=== PATIENT | male | born 1965 | race Caucasian/White ===

== ENCOUNTER 2018-02-02 17:05 | Inpatient (IN) ==
[2018-02-07] MEDS ORDERED: Aluminum/Magnesium/Simethacone Susp 30 ML UDC PO PRN (07:56)
--- NOTE | 2018-02-07 12:55 | P.PNPSY ---
Subjective Remarks: Patient was seen and case discussed with nursing. Patient remains psychotic. He is complaining of auditory hallucinations but cannot identify the content. His internally preoccupied and is seclusive to self. Says he sees ghosts at night. He denies that the voices are telling him to hurt himself or others. Compliant with medications. Has not had any outbursts. Eating and sleeping well Mental Status Examination Appearance: Disheveled Consciousness: Alert Orientation: x4 Motor Activity: Normal gait Speech: Slow Language: Adequate Fund of Knowledge: Inadequate Attention and Concentration: Easily distracted Memory: Unremarkable Mood: Appropriate Affect: Blunt Thought Process & Associations: Disorganized Thought Content: Hallucinations Hallucination Type: Auditory Delusion Type: Paranoid Suicidal Ideation: No Suicidal Plan: No Suicidal Intention: No Homicidal Ideation: No Homicidal Plan: No Homicidal Intention: No Insight: Fair Judgment: Impulsive Assessment and Plan - Assessment (1) Schizophrenia Code(s): F20.9 - Schizophrenia, unspecified Status: Acute - Plan Plan: Estimated LOS: [] days Continue current treatment plan Justification for Continued Inpatient Stay: Patient would decompensate in a less restrictive setting
--- NOTE | 2018-02-08 22:08 | P.PNPSY ---
Subjective Remarks: Patient seen for follow up; chart reviewed. Discussion with nursing staff reported the patient had been mostly seclusive to room and compliant with medications recently. Patient was found lying hospital bed noted B, cooperative. Patient states that he had been feeling "good" although continues report seeing ghosts and having auditory hallucinations that are "loud" and that they mostly "talk about weather" today. He reports having compliant with clozapine in the evening and was reminded that he will continue to require weekly CBCs to continue this treatment which he agrees to. Patient reports trying to attend groups more. Review of Systems All other systems reviewed negative except as stated in HPI Mental Status Examination Appearance: Appropriate Consciousness: Alert Orientation: x4 Motor Activity: Normal gait Speech: Slow Language: Adequate Fund of Knowledge: Inadequate Attention and Concentration: Easily distracted Memory: Unremarkable Mood: Appropriate Affect: Blunt Thought Process & Associations: Other Thought Content: Hallucinations Hallucination Type: Auditory, Visual (Coast outside the window) Delusion Type: Paranoid Suicidal Ideation: No Suicidal Plan: No Suicidal Intention: No Homicidal Ideation: No Homicidal Plan: No Homicidal Intention: No Insight: Fair Judgment: Impulsive Assessment and Plan - Assessment (1) Schizophrenia Code(s): F20.9 - Schizophrenia, unspecified Status: Acute - Plan Plan: Patient this time continues to endorse visual hallucinations as well as auditory hallucinations but not command in nature at this time. Patient denies any suicidal homicidal ideations at this time. We will continue cross titration of Abilify with clozapine therefore we will decrease Abilify 25 mg daily and increase clozapine to 150. We will order CBC for tomorrow to continue to monitor for neutropenia. Continue to monitor mood and behavior. Discharge planning in progress. Justification for Continued Inpatient Stay: At risk of further decompensation a lower level of care.
[2018-02-09] MEDS: ARIPiprazole 5 MG Tablet PO SCH ×2 (09:08→09:22)
[2018-02-09 11:04] LABS: Baso % (Auto) 0.9 % (0.0-2.0); Eos # (Auto) 0.1 th/mm3 (0.0-0.4); Eos % (Auto) 1.9 % (0.0-4.0); Hematocrit 41.5 % (39.0-51.0); Hemoglobin 13.7 gm/dL (13.0-17.0); Lymph # (Auto) 1.4 th/mm3 (1.0-4.8); Lymph % (Auto) 31.8 % (9.0-44.0); Mean Corpuscular HGB Conc 32.9 % (32.0-36.0); Mean Corpuscular Hemoglobin 28.5 pg (27.0-34.0); Mean Corpuscular Volume 86.6 fL (80.0-100.0); Mean Platelet Volume 8.6 fL (7.0-11.0); Mono # (Auto) 0.5 th/mm3 (0.0-0.9); Mono % (Auto) 11.2 % (0.0-8.0); Neut # (Auto) 2.4 th/mm3 (1.8-7.7); Neut % (Auto) 54.2 % (16.0-70.0); Platelet Count 257 th/mm3 (150-450); Red Blood Count 4.79 mil/mm3 (4.50-5.90); Red Cell Distribution Width 12.8 % (11.6-17.2); White Blood Count 4.4 th/mm3 (4.0-11.0)
[2018-02-09] MEDS ORDERED: Acetaminophen 325 MG Tablet PO PRN (17:41)
--- NOTE | 2018-02-09 21:18 | ECG ---
Date Performed: 02/09/2018 Time Performed: 18:46:08 PTAGE: 52 years EKG: Sinus rhythm POSSIBLE LEFT ATRIAL ENLARGEMENT ST DEVIATION AND MODERATE T-WAVE ABNORMALITY ABNORMAL ECG NO PREVIOUS TRACING DOCTOR: Talia Whyte Interpretating Date/Time 02/09/2018 21:17:00
--- NOTE | 2018-02-09 23:32 | P.PNPSY ---
Subjective Remarks: Patient seen for follow up; chart reviewed. Discussion with nursing staff reported that the patient continues to be isolative, cooperative with staff; med compliant. Patient was found lying on hospital bed, states that he is sleeping well, is going out for meals but has not attended groups. He reports VH of ghosts of family members and AH that are "not as bad, not as many, not as loud". Patient denies any SI/HI. Review of Systems All other systems reviewed negative except as stated in HPI Mental Status Examination Appearance: Appropriate Consciousness: Alert Orientation: x4 Motor Activity: Normal gait Speech: Slow Language: Adequate Fund of Knowledge: Inadequate Attention and Concentration: Easily distracted Memory: Unremarkable Mood: Appropriate Affect: Blunt Thought Process & Associations: Other Thought Content: Hallucinations Hallucination Type: Auditory, Visual (Ghosts outside the window) Delusion Type: Paranoid Suicidal Ideation: No Suicidal Plan: No Suicidal Intention: No Homicidal Ideation: No Homicidal Plan: No Homicidal Intention: No Insight: Fair Judgment: Impulsive Assessment and Plan - Assessment (1) Schizophrenia Code(s): F20.9 - Schizophrenia, unspecified Status: Acute - Plan Plan: Patient with continued AH and VH, continues to be isolative but denying any SI or HI. Will continue to cross titrate, Ability to 20mg PO daily, continue Clozapine 150mg PO HS. Continue to monitor vitals and any signs of possible myocarditis, will order repeat CBC for weekly monitoring of neutrophil count. Continue to monitor mood and behavior. Encourage patient to participate in groups and activities. Discharge planning in progress. Justification for Continued Inpatient Stay: At risk for further decompensation if at lower level of care.
--- NOTE | 2018-02-10 19:34 | P.PNPSY ---
Subjective Remarks: Patient seen for follow up; chart reviewed. Discussion with nursing staff reported patient seclusive; med compliant. Patient was found lying on hospital bed. He states that he is tolerating medications well, continues to report AH which are lessening "not as bad.. a little today". He reports VH of a ghost in the window during interview; denies any physical complaints. He states having attended [employer] group yesterday. Review of Systems All other systems reviewed negative except as stated in HPI Mental Status Examination Appearance: Appropriate Consciousness: Alert Orientation: x4 Motor Activity: Normal gait Speech: Slow Language: Adequate Fund of Knowledge: Inadequate Attention and Concentration: Easily distracted Memory: Unremarkable Mood: Appropriate Affect: Blunt Thought Process & Associations: Other Thought Content: Hallucinations Hallucination Type: Auditory (lessening), Visual (Ghosts outside the window) Delusion Type: None Suicidal Ideation: No Suicidal Plan: No Suicidal Intention: No Homicidal Ideation: No Homicidal Plan: No Homicidal Intention: No Insight: Fair Judgment: Impulsive Assessment and Plan - Assessment (1) Schizophrenia Code(s): F20.9 - Schizophrenia, unspecified Status: Acute - Plan Plan: Patient continues with AH which is decreasing, continues with VH; continues to be isolative. QTc within normal range. Will continue to cross titrate Abilify to 15mg daily and maintain clozapine at 150mg HS. No signs of symptoms of myocarditis. Continue to monitor vitals. Encourage patient to participate in groups and activities. Discharge planning in progress. Justification for Continued Inpatient Stay: At risk for further decompensation at lower level of care.
--- NOTE | 2018-02-11 18:03 | P.PNPSY ---
Subjective Remarks: Patient seen for follow-up, chart reviewed. Discussion with nursing staff reported that the patient patient continued to be seclusive to room, but compliant with medications. Patient was found lying hospital bed noted B, cooperative. Continues to report auditory hallucinations to be "the same" and being loud at times but not command in nature. Patient also mentions having visual hallucinations of ghosts in the room and outside his window. Patient denies any physical complaints at this time. Patient encouraged to participate in groups and activities which he stated he had not participated in group for fresh air yesterday and will try to participate today. Patient denies any SI or HI. Review of Systems All other systems reviewed negative except as stated in HPI Mental Status Examination Appearance: Appropriate Consciousness: Alert Orientation: x4 Motor Activity: Normal gait Speech: Slow Language: Adequate Fund of Knowledge: Inadequate Attention and Concentration: Easily distracted Memory: Unremarkable Mood: Appropriate Affect: Blunt Thought Process & Associations: Other Thought Content: Hallucinations Hallucination Type: Auditory (lessening), Visual (Ghosts outside the window) Delusion Type: None Suicidal Ideation: No Suicidal Plan: No Suicidal Intention: No Homicidal Ideation: No Homicidal Plan: No Homicidal Intention: No Insight: Fair Judgment: Impulsive Assessment and Plan - Assessment (1) Schizophrenia Code(s): F20.9 - Schizophrenia, unspecified Status: Acute - Plan Plan: Patient continues with perceptual disturbances but has been endorsing decrease in intensity and frequency recently. We will continue cross titration and we will decrease Abilify to 10 mg and increase clozapine to 175 mg p.o. at bedtime. We will continue to monitor mood and behavior. Collateral formation pending from patient's mother. Discharge planning in progress. Justification for Continued Inpatient Stay: At risk for further decompensation if at lower level of care.
[2018-02-12] MEDS: ARIPiprazole 10 MG Tablet PO SCH ×2 (09:18→09:19)
[2018-02-12] MEDS ORDERED: ARIPiprazole 10 MG Tablet PO SCH (12:42)
--- NOTE | 2018-02-12 17:20 | P.PNPSY ---
Subjective Remarks: Patient seen for follow-up, chart reviewed. Discussion nursing staff reported the patient reported that the auditory hallucinations have been better, and that now he is voices "gibberish", but compliant with medications has been out for meals and sleeping well. Patient was found lying hospital bed noted B, cooperative. Patient states that he is feeling better, and that the auditory hallucinations have always been there despite treatment and the best it has been is 5 out of 10 in intensity (10 being its worst) and at this time the voices are "5 out of 10". He also continues to endorse visual hallucinations of ghosts at times but does not appear to be distressed about them. Patient reports planning on contacting his mother later today. Review of Systems All other systems reviewed negative except as stated in HPI Mental Status Examination Appearance: Appropriate Consciousness: Alert Orientation: x4 Motor Activity: Normal gait Speech: Slow Language: Adequate Fund of Knowledge: Inadequate Attention and Concentration: Easily distracted Memory: Unremarkable Mood: Appropriate Affect: Blunt Thought Process & Associations: Other Thought Content: Hallucinations (Decreasing) Hallucination Type: Auditory (lessening), Visual (Decreasing) Delusion Type: None Suicidal Ideation: No Suicidal Plan: No Suicidal Intention: No Homicidal Ideation: No Homicidal Plan: No Homicidal Intention: No Insight: Fair Judgment: Impulsive Assessment and Plan - Assessment (1) Schizophrenia Code(s): F20.9 - Schizophrenia, unspecified Status: Acute - Plan Plan: Patient noted with improvement in her auditory hallucinations although they may never ceased completely but reports improvement in tolerable. We will continue to decrease Abilify toward discontinuation and continue to increase clozapine. Will continue to monitor mood and behavior. Discharge planning in progress. Justification for Continued Inpatient Stay: At risk for further decompensation if at lower level of care
--- NOTE | 2018-02-13 15:10 | P.PNPSY ---
Subjective Remarks: Pt seen and discussed with staff. He has been compliant with medications and denies side effects. He has been in bed most of the day but has not been aggressive or agitated. He reports that AH are lessening (no command, conversations) Mental Status Examination Appearance: Appropriate Consciousness: Alert Orientation: x4 Motor Activity: Normal gait Speech: Slow Language: Adequate Fund of Knowledge: Inadequate Attention and Concentration: Easily distracted Memory: Unremarkable Mood: Appropriate Affect: Flat Thought Process & Associations: Other Thought Content: Hallucinations (Decreasing) Hallucination Type: Auditory (lessening) Delusion Type: None Suicidal Ideation: No Suicidal Plan: No Suicidal Intention: No Homicidal Ideation: No Homicidal Plan: No Homicidal Intention: No Insight: Fair Judgment: Impulsive Assessment and Plan - Assessment (1) Schizophrenia Code(s): F20.9 - Schizophrenia, unspecified Status: Acute - Plan Plan: Pt improving. Continue current tx plan. Justification for Continued Inpatient Stay: risk of decompensation
--- NOTE | 2018-02-14 17:02 | P.PNPSY ---
Subjective Remarks: Pt seen and discussed with staff. He has been isolative to his room today only coming out for lunch. He is withdrawn and flat and is actively responding to internal stimuli, but reports that AH are lessening. No SI/HI Mental Status Examination Appearance: Appropriate Consciousness: Alert Orientation: x4 Motor Activity: Normal gait Speech: Slow Language: Adequate Fund of Knowledge: Inadequate Attention and Concentration: Easily distracted Memory: Unremarkable Mood: Appropriate Affect: Flat Thought Process & Associations: Other Thought Content: Hallucinations (Decreasing) Hallucination Type: Auditory (lessening) Delusion Type: None Suicidal Ideation: No Suicidal Plan: No Suicidal Intention: No Homicidal Ideation: No Homicidal Plan: No Homicidal Intention: No Insight: Fair Judgment: Impulsive Assessment and Plan - Assessment (1) Schizophrenia Code(s): F20.9 - Schizophrenia, unspecified Status: Acute - Plan Plan: Pt improving. Continue current tx plan. Justification for Continued Inpatient Stay: impairments in reality testing
--- NOTE | 2018-02-15 14:51 | P.PNPSY ---
Subjective Remarks: Patient seen for follow-up, chart reviewed. Discussion with nursing staff reported that the patient refused lab, continues with auditory visual hallucinations, noted somewhat restless. Patient was transferred from 2600- 2700 unit after patient was found standing over her roommate in the evening. Patient was found lying hospital bed interview with nurse and medical student noted calm and cooperative. Patient states that he is feeling "pretty good" continues report auditory hallucinations which are decreasing in visual hallucinations stating "[employer] a couple of goes". Patient state he spoke with his mother yesterday which went well, he denies having gone to any groups but states he will continue to try. Review of Systems All other systems reviewed negative except as stated in HPI Mental Status Examination Appearance: Appropriate Consciousness: Alert Orientation: x4 Motor Activity: Normal gait Speech: Slow Language: Adequate Fund of Knowledge: Inadequate Attention and Concentration: Easily distracted Memory: Unremarkable Mood: Appropriate Affect: Flat Thought Process & Associations: Other Thought Content: Hallucinations (Decreasing) Hallucination Type: Auditory (lessening), Visual (Some ghosts) Delusion Type: None Suicidal Ideation: No Suicidal Plan: No Suicidal Intention: No Homicidal Ideation: No Homicidal Plan: No Homicidal Intention: No Insight: Fair Judgment: Impulsive Assessment and Plan - Assessment (1) Schizophrenia Code(s): F20.9 - Schizophrenia, unspecified Status: Acute - Plan Plan: Patient this time continues to be isolative, not attending groups, but has had decreasing auditory hallucinations and visual hallucinations and continues with flat affect likely secondary to negative symptoms of chronic schizophrenia. We will continue to titrate clozapine to 250 mg p.o. at bedtime with upward titration as needed for psychosis. Labs pending for today as patient is currently on weekly monitoring, [facility] registration number: [id number] continue to monitor mood and behavior. Collateral information pending from patient's mother. Discharge planning in progress. Justification for Continued Inpatient Stay: At risk for further decompensation if at lower level of care
[2018-02-15 16:01] LABS: Baso % (Auto) 0.1 % (0.0-2.0); Eos # (Auto) 0.2 th/mm3 (0.0-0.4); Eos % (Auto) 4.2 % (0.0-4.0); Hematocrit 41.6 % (39.0-51.0); Hemoglobin 13.8 gm/dL (13.0-17.0); Lymph # (Auto) 0.8 th/mm3 (1.0-4.8); Lymph % (Auto) 23.8 % (9.0-44.0); Mean Corpuscular Hemoglobin 28.6 pg (27.0-34.0); Mean Corpuscular Volume 86.6 fL (80.0-100.0); Mean Platelet Volume 8.9 fL (7.0-11.0); Mono # (Auto) 0.5 th/mm3 (0.0-0.9); Mono % (Auto) 13.1 % (0.0-8.0); Neut # (Auto) 2.1 th/mm3 (1.8-7.7); Neut % (Auto) 58.8 % (16.0-70.0); Platelet Count 240 th/mm3 (150-450); Red Blood Count 4.81 mil/mm3 (4.50-5.90); White Blood Count 3.6 th/mm3 (4.0-11.0)
--- NOTE | 2018-02-16 14:50 | P.PNPSY ---
Subjective Remarks: Patient seen for follow-up, chart reviewed. Discussion with nursing staff reported that the patient continues to be isolative, endorsing auditory hallucinations, not attending any groups. Patient was found lying hospital bed asleep noted to be, cooperative. Patient states that he is feeling "pretty good ", states that the "voices are not bad" and that the visual hallucinations have been less and that the "negative thoughts has been a while". Patient states that when he is at home he stays busy by doing housework. He states that he will try to attend more groups during his admission here on the unit he was encouraged to maintain his hygiene which he agreed. Review of Systems All other systems reviewed negative except as stated in HPI Mental Status Examination Appearance: Appropriate Consciousness: Alert Orientation: x4 Motor Activity: Normal gait Speech: Slow Language: Adequate Fund of Knowledge: Inadequate Attention and Concentration: Easily distracted Memory: Unremarkable Mood: Appropriate Affect: Flat Thought Process & Associations: Other Thought Content: Hallucinations (Decreasing) Hallucination Type: Auditory (lessening), Visual (Lessening) Delusion Type: None Suicidal Ideation: No Suicidal Plan: No Suicidal Intention: No Homicidal Ideation: No Homicidal Plan: No Homicidal Intention: No Insight: Fair Judgment: Impulsive Assessment and Plan - Assessment (1) Schizophrenia Code(s): F20.9 - Schizophrenia, unspecified Status: Acute - Plan Plan: Patient this time noted with improvement in frequency duration intensity of auditory hallucinations as well as visual hallucinations. Patient tolerating medications well. We will continue to monitor weekly CBCs. We will continue to titrate clozapine to 300 mg p.o. at bedtime for psychosis. Monitor mood and behavior. Treatment team continues to, try to contact patient's mother patient to assess patient's baseline. Discharge planning in progress. Justification for Continued Inpatient Stay: At risk for further decompensation if at lower level of care
--- NOTE | 2018-02-17 10:47 | P.DSPSY ---
Psychiatry Discharge Summary Inpatient Psychiatric care?: Yes Advance Directives: No Mental Health Advance Directive: No Health Care Proxy: No - Admission Admission Date: February 03, 2018 10:27 - Admission Diagnosis (1) Schizophrenia Code(s): F20.9 - Schizophrenia, unspecified Brief History: Patient is a 52-year-old -[place] man who carries a diagnosis schizophrenia, denies psychiatric admissions, denies previous suicide attempt or self interest behavior, was brought in under [facility] for psychiatric evaluation as patient was endorsing command auditory hallucinations to kill himself as well as mother having noted the patient had been talking to self in the context of recent cocaine use which patient was transferred to the inpatient psychiatry unit for further evaluation and management. As per chart patient was brought in under [facility] for psychiatric evaluation having been endorsing command auditory hallucination to kill himself along with mother having stated that patient has been talking to himself more in the context of cocaine use recently. Patient was found sitting hospital bed noted, cooperative. Patient states hearing voices that have been this for many years and have never gone away. Patient stated these are voices of people he knows and people he does not know denies any command type auditory hallucinations at time of interview. He states having told his mother that he was hearing voices and EMS when brought him to the hospital. Patient also endorses having visual hallucinations of "ghosts" but denies any suicidal homicidal ideations. Patient reports last time he had auditory hallucination was earlier today but not at time of interview. Patient also mentions feeling "kind of depressed" due to the voices but reports no changes sleep, appetite or energy. Family psychiatric history: Denies Past psychiatric history: Schizophrenia, no previous psychiatric admissions as per patient, no previous suicide attempts or self-injurious behavior. Patient reports no history of abuse. Patient states he has outpatient follow-up with a psychiatrist through she was Jeb Nunez and previous medication trials include Prolixin, Haldol, Cogentin, Zyprexa, Risperdal. Substance use history: Alcohol use daily about 1 beer at a time, reports cocaine use every 3 weeks last time being 3 weeks ago. Patient denies use of any other drugs, denies any previous detox or rehabilitation programs. Past medical history: Denies Allergies: NKDA Social history: Single, no children, domiciled mother, no background, no asked to firearms, reports legal history of 3 years in correction (unclear what the charge was), highest education is GED. Tobacco Use In Past 30 Days: No How Often Do You Have a Drink Containing Alcohol: Never Hospital Course: Patient is a 52-year-old -[place] man who carries a diagnosis schizophrenia, denies psychiatric admissions, denies previous suicide attempt or self interest behavior, was brought in under [facility] for psychiatric evaluation as patient was endorsing command auditory hallucinations to kill himself as well as mother having noted the patient had been talking to self in the context of recent cocaine use which patient was transferred to the inpatient psychiatry unit for further evaluation and management. Patient was admitted to a locked, inpatient psychiatric unit. Appropriate precautions were in place throughout patient's hospital stay. Patient was seen and examined on the unit by psychiatry. Patient was cross tapered from Abilify to Clozapine up to 300mg PO HS with weekly monitoring of lab work. There was no evidence of any suicidality or homicidality on the inpatient unit. Patient's behavior improved with the benefit of psychopharmacologic treatment. Counselor has arranged for follow-up arrangements for outpatient appointments for continuity of care. On the day of discharge: Patient seen and examined with nurse. Chart reviewed. Case discussed with nurse and counselor. No behavioral issues overnight. On my examination today, the patient is agreeable to going home; mother had visited patient last night with no safety concerns at this time.. Patient feels ready to leave the hospital. He denies any suicidal or homicidal ideation, intent or plan on direct questioning and contracts for safety. I can elicit no mood symptoms. She denies any audiovisual hallucinations. No delusional material verbalized today. He denies any side effects from medications. He has a good understanding of medication regimen. No physical complaints. Suicide and violence risk assessment on day of discharge both suggest lower imminent risk, and the patient's level of function is adequate for planned level of outpatient care. Patient has maximized benefit from this inpatient psychiatric hospital stay and will be discharged to his home with mother with follow-up as arranged by counselor. Patient is also follow-up with primary care. Patient to return to psychiatric emergency room for any concerning psychiatric symptoms. - Discharge Discharge Date: 02/17/18 - Discharge Diagnosis (1) Schizophrenia Code(s): F20.9 - Schizophrenia, unspecified Status: Acute Discharge Disposition: Home - Discharge Instructions Discharge Diet: Heart Healthy Diet Activities You Can Perform: Regular- No Restrictions - Discharge Time > 30 minutes Mental Status Examination Appearance: Appropriate Consciousness: Alert Orientation: x4 Motor Activity: Normal gait Speech: Slow Language: Adequate Fund of Knowledge: Inadequate Attention and Concentration: Easily distracted Memory: Unremarkable Mood: Appropriate Affect: Appropriate, Blunt Thought Process & Associations: Intact, Linear Thought Content: Appropriate Hallucination Type: None Delusion Type: None Suicidal Ideation: No Suicidal Plan: No Suicidal Intention: No Homicidal Ideation: No Homicidal Plan: No Homicidal Intention: No Insight: Fair Judgment: Impulsive Discharge/Advance Care Plan - Results Vital Signs: Last Vital Signs Temp 97.4 F L 02/17/18 05:53 Pulse 100 H 02/17/18 05:53 Resp 17 02/17/18 05:53 BP 125/63 02/17/18 05:53 Pulse Ox 97 02/17/18 05:53 Lab Results: Laboratory Results Hemoglobin A1c 5.6 % (4.3-6.0) 02/04/18 06:15 Triglycerides 63 MG/DL (42-150) 02/04/18 06:15 Cholesterol 180 MG/DL (120-200) 02/04/18 06:15 HDL Cholesterol 61.1 MG/DL (40.0-60.0) H 02/04/18 06:15 Summary of Procedures: none Pending Results: None - Medications Number of antipsychotic medications at discharge: 1 - Discharge Care Plan Goals to Promote Your Health: * To prevent worsening of your condition and complications * To maintain your health at the optimal level Directions to Meet Your Goals: Take your medications as prescribed Follow your dietary instruction Follow activity as directed Keep your appointments as scheduled Take your immunizations and boosters as scheduled If your symptoms worsen call your PCP, if no PCP go to Urgent Care Center or Emergency Room For 24/ questions related to your inpatient stay or results of tests pending at discharge, please contact Dr. Maxwell Stratton MD at Smoking is Dangerous to Your Health. Avoid second hand smoking
== END 2018-02-17 17:10 | disposition home or self-care (01) ==
LOC: H260 02-03 10:27 → H270 02-15 02:30
PROVIDERS: ADMIT Student in an Organized Health Care Education/Training Program; ATTEND Student in an Organized Health Care Education/Training Program